=== PATIENT | male | born 1955 | race Caucasian/White ===

== ENCOUNTER 2017-01-04 10:57 | Inpatient (IN) | payer BC ==
[~2017-01-04] VITALS: Ht 177.8 cm; Wt 89.2 kg
[~2017-01-04 10:57] MED LIST: CHOL378P3 PO; LACTATED RINGERS 1,000 ML IV SCH
--- NOTE | 2017-01-04 12:11 | Diagnostic Imaging Report ---
PROCEDURE: CT of the abdomen with and without contrast and CT of the pelvis with contrast. TECHNIQUE: Precontrast acquisitions were acquired through the abdomen. Multiple contiguous axial images were obtained through the abdomen and pelvis after administration of intravenous contrast. INDICATION: Epigastric and thoracic pain for approximately four days. COMPARISON: Comparison is made to study of 01/01/2015. FINDINGS: There is mild low attenuation throughout the liver without focal hepatic abnormality identified. Gallbladder is surgically absent and there is no evidence of biliary ductal dilatation. The pancreas is diffusely prominent which has not changed when compared to the previous study. There is, however, very subtle increased density in the peripancreatic fat adjacent to the tail. No splenic lesion is identified. Nodule in the left adrenal gland now measures approximately 1.2 cm in diameter compared with 0.9 cm on the previous study. There continues to be central low density with precontrast Hounsfield units of 12. There is enhancement of the nodule on the dynamic images with Hounsfield unit value of 70. Otherwise, there are persistent nonobstructing calculi in the left kidney with the largest in the upper pole reaching 0.9 cm. There are subcentimeter cysts seen in both kidneys without solid renal mass identified. There is no free fluid in the abdomen or pelvis. There is mildly dilated fluid-filled small bowel in the left midabdomen without evidence of associated inflammation. Moderate stool seen throughout the ascending colon. There is continued herniation of fat into the inguinal canals, greater on the left. No bowel or bladder herniation is seen on the current study. Partially opacified urinary bladder is unremarkable. Occasional prostatic calcifications are similar to the previous study. There is mild narrowing of the T12-L1 disc space. No acute osseous abnormalities identified. IMPRESSION: 1. Mild diffuse prominence of the pancreas is similar to the previous examination however there is now mild peripancreatic edema and/or inflammation in the tail region. Correlation with serum pancreatic enzymes may be of use. 2. There has been increase in left adrenal gland nodule from 1 cm to approximately 1.2 cm in size. This does demonstrate contrast enhancement similar to the previous study. Followup study with CT or MRI could be considered if clinically indicated. 3. There are nonobstructing calculi in the left kidney and small cysts seen in both kidneys. No evidence of urinary tract mass or obstruction. 4. Fluid distended small bowel in the left abdomen may reflect ileus. No site of obstruction is identified. Dictated by: Dictated on workstation # [id number]
[2017-01-04 14:43] VITALS: BP 167/94
[2017-01-04] MEDS ORDERED: SODIUM CHLORIDE FLUSH 3 ML SYR IV PRN (14:43)
--- NOTE | 2017-01-04 14:43 | NUR ---
Patient admitted to room [address] Payne's office.
[2017-01-04 14:55] VITALS: BP 167/94
--- NOTE | 2017-01-04 15:00 | NUR ---
Patient reports epigastric pain rated at 8/10- this pain has become increasingly worse over the past several days. States one episode of vomiting at home. CT scan was done as an outpatient today.
[2017-01-04] MEDS ORDERED: ENOXAPARIN 40 MG/0.4 ML (LOVENOX) SYR SC SCH (15:20)
[2017-01-04] MEDS ORDERED: 1/2 NS W/KCL 20 MEQ/L 1,000 ML IV SCH (15:20)
[2017-01-04] MEDS ORDERED: ONDANSETRON 2 MG/ML (Z0FRAN) 2 ML VIAL IV PRN (15:20)
--- NOTE | 2017-01-04 15:20 | NUR ---
Dr. Nguyen is at the bedside to assess the patient.
--- NOTE | 2017-01-04 15:30 | NUR ---
Initiated IV access in the right hand- 22 gauge.
[2017-01-04] MEDS ORDERED: NS FLUSH 10 ML PRN IV (15:35)
[2017-01-04] MEDS ORDERED: NS FLUSH 3 ML PRN IV (15:35)
[2017-01-04] MEDS: morphine INJ 4 MG/ML 1 ML SYRINGE IV PRN ×4 (15:39→20:54)
--- NOTE | 2017-01-04 15:39 | NUR ---
Gave morphine 2 mg. IV for complaint of epigastric pain rated 8/10. Also gave Zofran 4 mg. IV for nausea. No vomiting at this time.
--- NOTE | 2017-01-04 16:00 | NUR ---
Pain rating is 5/10.
[2017-01-04] MEDS ORDERED: PANTOPRAZOLE IV 40 MG in SODIUM CHLORIDE FLUSH 10 ML IV SCH (17:15)
[2017-01-04] MEDS ORDERED: LOSA100T8 PO (17:28)
--- NOTE | 2017-01-04 17:30 | NUR ---
Gave MS 4 mg. IV for complaint of abdominal pain across both upper quadrants rated at 8/10. V.S. stable. Voided 200 cc's.
--- NOTE | 2017-01-04 18:30 | NUR ---
Called Dr. Nguyen to report increased abdominal pain in both upper quadrants that has not been well relieved by MS. Received orders for stat lab work.
--- NOTE | 2017-01-04 18:45 | NUR ---
Lab here for stat blood draw.
[2017-01-04 19:12] LABS: MEAN CORPUSCULAR HEMOGLOBIN 30.4 PG (26.0-34.0); MEAN CORPUSCULAR HGB CONC 33.9 g/dL (31.0-37.0); MEAN CORPUSCULAR VOLUME 90 FL (80-100); MEAN PLATELET VOLUME 11.7 FL (6.0-9.5); PLATELET COUNT 197 10^3uL (150-450); WHITE BLOOD COUNT 16.53 10^3uL (4.0-11.0)
[2017-01-04 19:27] LABS: AMYLASE* 104 U/L (25-115); LIPASE* 261 U/L (23-300)
[2017-01-04 19:30] VITALS: BP 154/86
[2017-01-04 19:30] LABS: BAND NEUTROPHILS % 5 % (0-6); EOSINOPHILS % 0 % (0-4); LYMPHOCYTES # 1.2 #; MONOCYTES % 6 % (3-11); RBC MORPH NORMAL (NORMAL); SEGMENTED NEUTROPHILS % 82 % (51-67); TOTAL CELLS COUNTED 100
--- NOTE | 2017-01-04 19:30 | NUR ---
Gave MS 4 mg. IV for complaint of abdominal pain rated at 10/10.
--- NOTE | 2017-01-04 19:40 | NUR ---
Dr. Nguyen here to discuss exploratory surgery with the patient.
--- NOTE | 2017-01-04 19:41 | Progress Note (E) ---
Progress Note Zak has had worsening pain through the late afternoon and evening, not relieved adequately even after 4mg dose of Morphine plus another just a bit ago. His WBC tonight is up to 16,000, and shows 5% bands. He is afebrile with normal vital signs. His exam is basically unchanged. I recommend laparoscopy with possible laparotomy, possible EGD. This was discussed with him and Kathy, and he agrees to proceed. MENDY TORRES MD Jan 04, 2017 19:41
--- NOTE | 2017-01-04 19:45 | NUR ---
1000 ml LR started at 194 as ordered.
[2017-01-04] MEDS ORDERED: LACTATED RINGERS 1,000 ML IV ONE (19:53)
--- NOTE | 2017-01-04 19:55 | NUR ---
DEVIN running at [facility]
[2017-01-04] MEDS ORDERED: ALFENTANIL 500 MCG/ML (ALFENTA) 5 ML AMP IV ONE (20:15)
[2017-01-04] MEDS ORDERED: MIDAZOLAM 2 MG/2 ML (VERSED) VIAL ONE (20:15)
[2017-01-04] MEDS ORDERED: SUCCINYLCHOLINE 20 MG/ML 10 ML VIAL ONE (20:17)
[2017-01-04] MEDS ORDERED: BUPIVACAINE/EPINEPHRINE 0.5%-1:200,000 (MARCAINE) 30 ML VIAL INJ ONE ×2 (20:38)
[2017-01-04] MEDS ORDERED: LIDOCAINE/EPINEPHRINE 1% 1:100,000 (XYLOCAINE) 30 ML VIAL INJ ONE ×2 (20:38)
[2017-01-04] MEDS ORDERED: CLINDAMYCIN 600 MG/4ML (CLEOCIN) VIAL ONE (20:50)
[2017-01-04] MEDS ORDERED: SODIUM CHLORIDE 50 ML IV ONE (20:52)
--- NOTE | 2017-01-04 20:57 | NUR ---
TO OR PER CART ACCOMPANIED BY [facility] PACU AND ANESTHESIA AND PATIENT'S . SKIN W/P/D. RESP UNLABORED.
[2017-01-04] MEDS ORDERED: ePHEDrine SULFATE 50 MG/ML 1 ML AMP ONE (21:21)
[2017-01-04] MEDS ORDERED: ROCURONIUM 50 MG/5 ML (ZEMURON) VIAL IV ONE (21:22)
[2017-01-04] MEDS ORDERED: NEOSTIGMINE 1 MG/ML SYRINGE ONE (22:45)
[2017-01-04] MEDS ORDERED: GLYCOPYRROLATE 0.2 MG/ML (ROBINUL) 1 ML VIAL ONE (22:45)
--- NOTE | 2017-01-04 23:20 | NUR ---
Pt.'s returns to room to await pt.; cot and drinks offered; does not plan to spend the night.
[2017-01-04] MEDS ORDERED: PROPOFOL 20 ML IV ONE (23:34)
[2017-01-05] VITALS (15 sets, daily range): BP systolic 125–158; BP diastolic 69–88
--- NOTE | 2017-01-05 00:05 | NUR ---
Pt. arrives to Med Surg room 305 via cart; accompanied by OR/RN's x 2. Pt. pale in coloration; resp are even and unlabored on room air; appears to be in no distress. IV sites x 2: Right hand/22 gauge; Left forearm/18 gauge. Dressings intact x 3 at abd. Vital signs taken. Pt. asks this nurse, "Where am I?" at bedside.
--- NOTE | 2017-01-05 00:25 | NUR ---
Zofran 4 mg IV given slow push for report of slight nausea. Pt. denies pain. assists pt. with applying home CPAP. IVF of 1/2 NS with 20 KCL infusing at 130 cc/hr without difficulty at right hand. Pt. reminded of call light placement at right hand.
[2017-01-05 00:28] LABS: CLARITY,URINE Clear; COLOR,URINE Yellow
[2017-01-05 00:29] LABS: GLUCOSE, URINE (UA) Negative (Negative)
[2017-01-05] MEDS: 1/2 NS W/KCL 20 MEQ/L 1,000 ML IV SCH ×3 (00:29→18:19)
[2017-01-05 00:30] LABS: BILIRUBIN,URINE 1+ (Negative); LEUKOCYTE ESTERASE, URINE Negative (Negative); UROBILINOGEN,URINE 0.2 mg/dL (0.2-1.0)
--- NOTE | 2017-01-05 00:30 | NUR ---
leaves for the night; phone number on white board. Pt. resting quietly; appears to be in no distress. Will continue to monitor.
--- NOTE | 2017-01-05 01:00 | NUR ---
Pt. continues to rest quietly; appears to be in no distress.
--- NOTE | 2017-01-05 01:55 | NUR ---
Pt. stands at bedside to utilize urinal; voids 200 cc's clear urine. Pt. reapplies CPAP; denies need for pain med. Call light within reach.
--- NOTE | 2017-01-05 03:00 | NUR ---
Pt. appears to be resting comfortably; CPAP applied; IVF infusing; call light within reach.
--- NOTE | 2017-01-05 03:15 | NUR ---
Pt. up to void; 200 cc's; denies need for pain med; asking appropriate questions regarding surgery findings. Pt. very pleasant and cooperative.
[2017-01-05] MEDS ORDERED: ONDANSETRON 2 MG/ML (Z0FRAN) 2 ML VIAL IV PRN (03:20)
--- NOTE | 2017-01-05 04:20 | NUR ---
Pt. up to void; left IV site secured/neurourologist applied. Pt. denies need for pain med; denies nausea.
[2017-01-05] MEDS ORDERED: morphine INJ 2 MG/ML 1 ML SYRINGE ONE (06:18)
[2017-01-05] MEDS: morphine INJ 4 MG/ML 1 ML SYRINGE IV PRN ×2 (06:23→08:25)
--- NOTE | 2017-01-05 06:23 | NUR ---
Morphine 2mg IV given for central abd. pain rated "3". Pt. describes pain as non-radiating; gradually getting worse. IVF infusing without difficulty; call light and urinal within reach.
--- NOTE | 2017-01-05 06:45 | NUR ---
Pt. resting quietly with eyes closed; appears to be in no distress. CPAP applied; IVF infusing; call light & urinal within reach.
--- NOTE | 2017-01-05 07:15 | NUR ---
Pt found sleeping in bed, CPAP in place. IVF infusing with no difficulty.
[2017-01-05] MEDS ORDERED: SODIUM CHLORIDE FLUSH 10 ML SYR IV PRN (07:53)
[2017-01-05] MEDS ORDERED: SODIUM CHLORIDE FLUSH 3 ML SYR IV PRN (07:54)
--- NOTE | 2017-01-05 08:11 | HISTORY AND PHYSICAL ---
HISTORY CHIEF COMPLAINT: Epigastric abdominal pain HISTORY OF PRESENT ILLNESS: The patient is admitted today for abdominal pain that has been ongoing for the last 4 days. It has been a constant pain, at times sharp, and more severe after he ate lunch today. He called this afternoon to report that he pain had increased in intensity, and we agreed that he should be admitted to the hospital for further evaluation and pain control. Earlier today he contacted me regarding the pain and wondered if I could do an EGD, which has been scheduled to tomorrow. He has had more mild symptoms in the past, what is described as back pain associated with bloating, but not typically this severe upper abdominal pain. He doesn't carry any history of peptic ulcer disease, and has had numerous endoscopic evaluations. He has had some nausea today and had dry heaves a couple of hours after lunch, but no vomiting. His bowel habits have been completely normal. His workup includes a visit with Dr. Payne earlier today, who obtained a CBC, CMP, lipase, and eventually a CT of the abdomen and pelvis. His white blood cell count was mildly elevated without bandemia. The CT did not show any acute abnormality, but there was some question of some mild fat stranding in the tail of the pancreas. His lipase was at the upper end of the normal range. PAST MEDICAL HISTORY: 1. Hypertension. 2. Nephrolithiasis. 3. Sleep Apnea PAST SURGICAL HISTORY: 1. Esophagogastroduodenoscopies. 2. Colonoscopy. 3. Cholecystectomy. 4. Right inguinal hernia repair. 5. Appendectomy. 6. Cleft palate repair. 7. ERCP. 8. History of ureteral stent placement. ALLERGIES: Penicillin CURRENT MEDICATIONS: Questran powder 378 gm p.o. b.i.d. Losartan FAMILY HISTORY: Significant for esophageal cancer in his father, along with heart disease, and a brother and mother with gallbladder disease. SOCIAL HISTORY: Nonsmoker. He does drink alcohol regularly, but hasn't had any over the last 4 days. REVIEW OF SYSTEMS: GENERAL: As above. CARDIOVASCULAR: No chest pain or history of heart disease. He has been treated for hypertension in the past. GASTROINTESTINAL: As above. GENITOURINARY: History of nephrolithiasis. ENDOCRINE: No history of diabetes, thyroid or adrenal disease. PHYSICAL EXAM VITAL SIGNS: Temperature is 97.2, respirations 28, blood pressure 167/94 on admission. Heart rate is 78. O2 sats 100% on room air. GENERAL: He does appear uncomfortable, but in no acute distress. HEENT: No scleral icterus LUNGS: Clear to auscultation bilaterally. HEART: S1, S2 regular rate and rhythm. ABDOMEN: Bowel sounds are present, mildly distended. Tympanic to percussion with tenderness in the epigastrium and left upper quadrant. No guarding or rebound tenderness was appreciated. No masses were palpable. RECTAL: Deferred. EXTREMITIES: No cyanosis or edema. SKIN: Warm and dry with no jaundice. NEURO: Grossly intact. LABORATORY: As above. IMAGING: See CT report. ASSESSMENT: Epigastric abdominal pain. PLAN: We will proceed with the EGD tomorrow morning or sooner if necessary. The differential diagnosis includes peptic ulcer disease, gastritis, early pancreatitis and others. I will repeat his liver and pancreatic enzymes tomorrow and keep him n.p.o.
[2017-01-05] MEDS: PANTOPRAZOLE IV 40 MG in SODIUM CHLORIDE FLUSH 10 ML IV SCH ×2 (08:14→20:15)
--- NOTE | 2017-01-05 08:30 | OPERATIVE REPORT ---
DATE OF OPERATION: 01/04/2017 PRE-OPERATIVE DIAGNOSIS: 1. Epigastric abdominal pain. 2. Leukocytosis. POST-OPERATIVE DIAGNOSIS: 1. Negative laparoscopy. 2. Pre-pyloric ulcer. OPERATIVE PROCEDURE: 1. Diagnostic laparoscopy. 2. Esophagogastroduodenoscopy with biopsies. SURGEON: Eric Nguyen MD MERCHANDISER SEASONAL: Jazmin Xie RN FA ANESTHESIA: General endotracheal anesthetic INDICATIONS: The patient is a 61-year-old who is admitted today with abdominal pain of approximately 4 days duration, escalating in its severity and intensity over the afternoon hours. His white blood cell count increased from morning until late afternoon, and laparoscopy with possible EGD was recommended. He agreed to proceed. DESCRIPTION OF PROCEDURE: The patient was informed of the risks and benefits and agreed to proceed. He was taken to the operating room and placed supine on a standard operating table. He was administered preoperative IV antibiotics and then general endotracheal anesthetic. When properly anesthetized a Marshall catheter was placed to drainage and his abdomen was prepped and draped in standard sterile fashion. The open technique was used to access the peritoneal cavity through an infraumbilical incision at the site of a previous laparoscopy scar. Then #0 Vicryl stay sutures were placed in the fascia. A 10-mm port was inserted and CO2 was insufflated to 15 mmHg. An Olympus 10-mm 3D laparoscope was used. Inspection of the peritoneal cavity revealed no gross contamination, peritoneal fluid or inflammatory changes of any recent nature. There were adhesions between loops of small bowel in the right lower quadrant next to the cecum from his previous appendectomy. There were also some adhesions between the colon and some pericolonic fat in the abdominal wall in the left lower quadrant. There was some moderately distended small bowel below the umbilical trocar, but no immediate sign of ischemia. Under direct vision a right upper quadrant 5-mm port was placed. A second 5-mm port was then placed in the right lower quadrant. Attention was then turned to the left upper quadrant where the most tenderness had been located on exam. The omentum was lifted and the underlying small bowel was inspected. It was viable, and appeared healthy without any evidence of obstruction or ischemia. The bowel was ran both directions carefully, looking for any evidence of an obstruction or transition zone. There were areas where the bowel was more distended than others, but these areas were not incontinuity and there were intervening segments of completely decompressed bowel between the mild to moderately dilated segments. This was suggestive of an ileus. The small bowel was run to the ligament of Treitz and then distally through its entire extent to the right lower quadrant. Here there were some adhesions between loops of bowel next to the cecum that I chose to leave alone as there was no evidence of any obstruction and there were significant adhesions to the cecum that I did not think were clinically relevant at this time. There was no evidence of creeping fat or inflammatory bowel disease. The anterior surface of the stomach was inspected and it appeared unremarkable. The descending colon was visualized and appeared healthy. The adhesions in the left lower quadrant were taken down next to the abdominal wall and the underlying colon did not appear inflamed. There was no fluid in the pelvis or any evidence of inflammation there. The liver appeared unremarkable. At this point, I decided to terminate the laparoscopy and perform upper endoscopy. The 5 mm trocars were removed under direct vision and no bleeding was seen from the abdominal wall. The umbilical port was removed and the CO2 was let out of the abdomen. The Vicryl stay sutures were tied. An additional #0 Vicryl suture was placed to completely close the fascial defect at the umbilicus. The skin was closed at all 3 incisions with subcuticular 4-0 Monocryl and dressings were applied. Attention was then turned to the EGD. A bite block was placed and the lighted endoscope was passed down the esophagus and into the stomach. Air was insufflated. There was a small amount of retained food matter in the fundus, which was partially removed. The scope was advanced to the pylorus and this ulcer could be seen immediately. It was relatively small and appeared to be an early pre-pyloric ulcer. This was photographed. The scope was then passed through the pylorus into the duodenum where the first, second and third portions of the duodenum were visualized. No inflammation or ulcers were seen there. The scope was brought back into the stomach. Biopsies were obtained from the antrum for MARÍA and histology and then biopsies were taken of the edge of the ulcer as well. No other ulcers or inflammation were seen in the stomach. The diaphragmatic hiatus was noted at approximately 40 with the squamocolumnar junction at the same level. The scope was withdrawn through the esophagus and no significant pathology was noted other than some changes of reflux esophagitis. The scope was removed completing the procedure. The patient tolerated the procedure without complications. Path is pending.
--- NOTE | 2017-01-05 08:30 | NUR ---
PRN Morphine 2mg given at 0825 for abd pain rated 3/10. Facial grimacing and guarding noted. Pt appears quite uncomfortable. Denies nausea, but is uninterested in CL diet at this time. Pt stands up at side of bed independently to use urinal. RH IV became tender. Flushed with 10cc NS; no redness/edema noted. IVF restarted, continues to be tender. IVF switched to LFA IV. Pt reports this feels better. Will continue to monitor. Dr Nguyen in room, no new orders. Call light within reach. Pt denies needs at this time.
[2017-01-05] MEDS ORDERED: NS FLUSH 3 ML DAILY IV SCH (09:00)
[2017-01-05] MEDS: SODIUM CHLORIDE FLUSH 3 ML SYR IV SCH (09:00)
--- NOTE | 2017-01-05 10:04 | Progress Note-A/P (E) ---
Progress Note Subjective Subjective His pain control has been improved since surgery. He awakens easily but is somnolent. We reviewed the findings from surgery. Objective VS Vital Signs Date Time Temp Pulse Resp B/P Pulse Ox O2 Delivery O2 Flow Rate FiO2 01/05/17 07:59 98.0 89 18 148/85 99 Room air I&O I & O Past 24 hrs 01/05/17 07:00 Intake Total 1008 ml Output Total 2875 ml Balance -1867 ml Intake Oral 240 ml IV Total 768 ml Output Urine Total 2875 ml Current Medications Current Medications Potassium Chloride/Sodium Chloride 1,000 ml @ 130 mls/hr [id number] IV Last administered on 01/05/17 08:12; Admin Dose 130 MLS/HR; Start 01/04/17 at 23:35 Pantoprazole/ Sodium Chloride 10 ml @ 50 mls/hr BID IV Last administered on 08:14; Admin Dose 50 MLS/HR; Start 01/05/17 at 09:00 Enoxaparin Sodium 40 mg DAILY@17 SC; Start 01/05/17 at 17:00 Morphine Sulfate 1-4MG IV Q1H PRN PAIN Q1H PRN IV Last administered on 08:25; Admin Dose 2 MG; Start 01/05/17 at 00:20 Ondansetron HCl 4 mg Q6H PRN IV Last administered on 01/05/17 00:23; Admin Dose 4 MG; Start 01/05/17 at 03:20 Sodium Chloride 10 ml UD PRN IV; Start 01/05/17 at 07:53 Sodium Chloride 3 ml UD PRN IV; Start 01/05/17 at 07:54 Sodium Chloride 3 ml DAILY IV; Start 01/05/17 at 09:00 General Awake, no distress. CV S1S2 RRR Lungs Clear bilaterally at bases. Abdomen Bowel sounds present, non-distended. Dressings dry, intact over trocar sites. Extremities No edema Integumentary No unusual findings Neuro Grossly normal Labs, Most Recent- Laboratory Results Past 24 Hrs 01/04/17 19:00: Absolute Band Neutrophils 0.8, Amylase Level 104, Band Neutrophils % 5, Basophils # (Auto) , Basophils # (Manual) 0.0, Basophils % (Manual) 0, Basophils (%) (Auto) , Blood Morphology Comment Normal, Differential Total Cells Counted 100, Eosinophils # 0.0, Eosinophils # (Auto) , Eosinophils % ( Manual) 0, Eosinophils (%) (Auto) , Hematocrit 46.30, Hemoglobin 15.7, Lactic Acid Level 1.1, Lipase 261, Lymphocytes # 1.2, Lymphocytes # (Auto) , Lymphocytes % (Manual) 7, Lymphocytes (%) (Auto) , Mean Corpuscular Hemoglobin 30.4, Mean Corpuscular Hemoglobin Concent 33.9, Mean Corpuscular Volume 90, Mean Platelet Volume 11.7, Monocytes # 1.0, Monocytes # (Auto) , Monocytes % ( Manual) 6, Monocytes (%) (Auto) , Neutrophils # 13.6, Neutrophils # (Auto) , Neutrophils (%) (Auto) , Platelet Count 197, Red Blood Count 5.16, Red Cell Distribution Width 12.8, Segmented Neutrophils % 82, White Blood Count 16.53 01/04/17 21:30: Urine Bilirubin 1+, Urine Blood Trace-intact, Urine Clarity Clear, Urine Collection Type Catheter, Urine Color Yellow, Urine Glucose (UA) Negative, Urine Ketones 3+, Urine Leukocyte Esterase Negative, Urine Nitrite Negative, Urine Protein Trace, Urine Specific [place] >=1.030, Urine Urobilinogen 0.2, Urine pH 6.0 24 Hr Result Diagram CBC BMP Last 24 Hrs 01/04/17 19:00 Assessment POD#1 Laparoscopy, EGD Prepyloric ulcer Plan Continue PPI. I don't think that the ulcer represents the cause of his symptoms , given the severity of pain last night. Will advance diet as tolerated, treat the ulcer, and consider further diagnostic workup as an outpatient. This may involve MRCP or endoscopic ultrasound. MENDY TORRES MD Jan 05, 2017 10:03
--- NOTE | 2017-01-05 12:17 | NUR ---
Pt resting in bed. Uses urinal at bedside. Tolerating CL well. IVF infusing with no difficulty. Denies needs. Encouraged pt to call if needs arise.
--- NOTE | 2017-01-05 16:00 | NUR ---
Pt ambulated 3 full laps in [place] independently. Denies need for pain medicine. Tolerating CL well. Denies other needs.
[2017-01-05] MEDS ORDERED: ENOXAPARIN 40 MG/0.4 ML (LOVENOX) SYR SC SCH (17:00)
--- NOTE | 2017-01-05 18:40 | NUR ---
Pt rests in chair at this time. Skin warm, dry, intact. Resprs nonlabored, even on RA. Pt rates pain 2/10. States it's not painful, just uncomfortable. Requests Tylenol. Wendy notified, awaiting reply. Pt aware. Pt requested to not receive lovenox shot. States politely that he "is ambulatory, not a smoker, not obese, only had a laparoscopic surgery, had an ulcer that does not need to bleed" so he does not think it is clinically indicated. Informed pt that it is not a problem to refuse it. Water replenished, urinal emptied. Pt denies needs at this time.
[2017-01-05] MEDS: ACETAMINOPHEN 500 MG TAB (TYLENOL) PO PRN (20:14)
--- NOTE | 2017-01-05 20:30 | NUR ---
Tylenol given for abdominal discomfort rated 2/10. Patient initially has a little difficulty swallowing pills using straw. Some coughing and gagging resulted. Drinking from cup works better for patient. IV site in right hand dc'd due to reported tenderness. Assessment completed. Lap incisional dressings are dry and intact with no drainage. Bowel sounds are active.
[2017-01-06 00:07] VITALS: BP 153/89
[2017-01-06] MEDS: ACETAMINOPHEN 500 MG TAB (TYLENOL) PO PRN (02:28)
--- NOTE | 2017-01-06 02:28 | NUR ---
tylenol for back pain "about T-10" described as deep bone pain.
--- NOTE | 2017-01-06 02:32 | NUR ---
Assisted to recliner for change of position. Patient displays signs of discomfort with furrowed brow, but pain is rated at 3 only.
--- NOTE | 2017-01-06 03:50 | NUR ---
States he has no pain right now and denies needs.
[2017-01-06] MEDS: 1/2 NS W/KCL 20 MEQ/L 1,000 ML IV SCH (04:23)
[2017-01-06 04:25] VITALS: BP 145/89
--- NOTE | 2017-01-06 06:27 | NUR ---
Patient has had quiet night. [facility]lept in bed early part of night [facility] spending several hrs dozing there. Is now resting in bed. Patient has had few complaints. Received tylenol twice this shift for discomfort.
[2017-01-06 07:53] VITALS: BP 147/93
[2017-01-06] MEDS ORDERED: OMEP40CA36 PO (08:19)
[2017-01-06] MEDS ORDERED: SUCR1TAB29 PO (08:19)
--- NOTE | 2017-01-06 08:30 | NUR ---
Pt sitting up in chair for breakfast. Regular tray provided. Pt rates pain 2/10 at this time. Drsgs dry, intact; changed at this time in preparation for discharge. Pt states he slept well last night. Skin warm, dry. Resprs nonlabored, even on RA. Denies needs at this time.
[2017-01-06] MEDS: PANTOPRAZOLE IV 40 MG in SODIUM CHLORIDE FLUSH 10 ML IV SCH (08:43)
[2017-01-06] MEDS: SODIUM CHLORIDE FLUSH 3 ML SYR IV SCH (09:00)
--- NOTE | 2017-01-06 09:45 | Progress Note-A/P (E) ---
Progress Note Subjective Subjective He feels better today. Would like to try solid food. Objective VS Vital Signs Date Time Temp Pulse Resp B/P Pulse Ox O2 Delivery O2 Flow Rate FiO2 01/06/17 07:53 97.4 69 20 147/93 Room air 01/06/17 04:25 97 01/05/17 15:50 0.00 I&O I & O Past 24 hrs 01/06/17 07:00 Intake Total 3600 ml Output Total 4000 ml Balance -400 ml Intake Oral 1181 ml IV Total 2419 ml Output Urine Total 4000 ml Current Medications Current Medications Pantoprazole/ Sodium Chloride 10 ml @ 50 mls/hr BID IV Last administered on 08:43; Admin Dose 50 MLS/HR; Start 01/05/17 at 09:00 Enoxaparin Sodium 40 mg DAILY@17 SC; Start 01/05/17 at 17:00 Morphine Sulfate 1-4MG IV Q1H PRN PAIN Q1H PRN IV Last administered on 08:25; Admin Dose 2 MG; Start 01/05/17 at 00:20 Ondansetron HCl 4 mg Q6H PRN IV Last administered on 01/05/17 00:23; Admin Dose 4 MG; Start 01/05/17 at 03:20 Sodium Chloride 10 ml UD PRN IV; Start 01/05/17 at 07:53 Sodium Chloride 3 ml UD PRN IV; Start 01/05/17 at 07:54 Sodium Chloride 3 ml DAILY IV; Start 01/05/17 at 09:00 Acetaminophen 1-2 tabs PO Q6 PRN for pain Q6H PRN PO Last administered on 02:28; Admin Dose 1,000 MG; Start 01/05/17 at 19:40 General Awake, no distress. Assessment POD#2 Laparoscopy, EGD Prepyloric ulcer Plan If tolerating regular diet will DC home with PPI and Carafate. MENDY TORRES MD Jan 06, 2017 09:45
--- NOTE | 2017-01-06 09:48 | Discharge Instructions (E) ---
Discharge Instructions Instructions Call with increasing pain, nausea, or other concerns. Activity Instructions No restrictions Doctor's Appointment F/U in office at your convenience. Discharge Diet: Regular MENDY TORRES MD Jan 06, 2017 09:48
--- NOTE | 2017-01-06 10:01 | NUR ---
IV SL at this time. Pt changing into home clothes and gathering belongings.
--- NOTE | 2017-01-06 10:30 | NUR ---
Discharge instructions reviewed with patient and spouse, demonstrates understanding. SL removed with catheter tip intact. Pressure applied, bandage changed. Incision drsgs dry, intact. Skin warm, dry. Resprs nonlabored, even on RA. Homar PharmD and student reviewed medications with patient. Yumis, REED packet, and scripts sent with patient. Pt dismissed at this time via ambulation accompanied by spouse and Janett Lyles CNA. Pt appreciative of cares.
--- NOTE | 2017-01-06 11:09 | DISCHARGE SUMMARY ---
ADMISSION DATE: 01/04/2017 DISCHARGE DATE: 01/06/2017 DISCHARGE DIAGNOSIS: Pre-pyloric ulcer PROCECURES PERFORMED: Diagnostic laparoscopy and Esophagogastroduodenoscopy January 04 PRESENT ILLNESS AND POSITIVE PHYSICAL FINDINGS: The patient is a 61-year-old admitted with severe epigastric abdominal pain radiating to his back along with leukocytosis. SIGNIFICANT X-RAY AND LABORATORY DATA: On admission white blood cell count was 16.5. HOSPITAL COURSE AND TREATMENT: The patient was admitted for pain control, and bowel rest, and during the first few hours of his hospitalization his pain escalated. It was not relieved significantly even with 4 mg doses of morphine and due to concern of possible ischemic viscera he was taken to the operating room for laparoscopy. There is no evidence of ischemic bowel or obstruction and no obvious pathology was seen with the laparoscope. On upper endoscopy, there was a pre-pyloric ulcer noted and biopsies were obtained for MARÍA and histology. He was returned to the Med/Surg floor and treated with IV Protonix as well as morphine for pain. Over the next 24 to 48 hours, his pain improved significant and he was able to tolerate a clear liquid diet the following afternoon. This was advanced on postop day 2 to a regular diet. He was ambulating without difficulty at that point. CONDITION AT DISCHARGE: Stable. DISCHARGE INSTRUCTIONS: He was given a prescription for Omeprazole 40 mg daily for 4 weeks, and Carafate 1 gm q.i.d. for 3 weeks. We are awaiting the results from the H. pylori studies.
[2017-01-10 11:05] LABS: URINE CENTRIFUGED VOLUME 10 mL
[2017-01-10 11:06] LABS: RBC,URINE 0-2 /HPF
== END 2017-01-06 10:30 | disposition home or self-care (01) | DRG 358 ==
LOC: RAD 10:57 → MED/SURG 14:46 → OBSVTOIN 23:35
PROVIDERS: ADMIT Surgery; ATTEND Surgery
PROC: 0WJG4ZZ Inspection of Peritoneal Cavity, Percutaneous Endoscopic Approach (ICD-10-PCS; principal; 2017-01-04)
PROC: 0WJP4ZZ Inspection of Gastrointestinal Tract, Percutaneous Endoscopic Approach (ICD-10-PCS; 2017-01-04)
PROC: 0DB68ZX Excision of Stomach, Via Natural or Artificial Opening Endoscopic, Diagnostic (ICD-10-PCS; 2017-01-04)
DX: K25.9 Gastric ulcer, unspecified as acute or chronic, without hemorrhage or perforation (principal); I10 Essential (primary) hypertension; G47.33 Obstructive sleep apnea (adult) (pediatric)
CPT/HCPCS: 36415; 74178; 81003; 81015; 82150; 83605; 83690; 85025; 86850; 86900; 86901